=== PATIENT | female | born 1965 | race American Indian/Alaskan Native ===

== ENCOUNTER 2016-12-19 17:56 | Emergency (ER) | payer OTHER ==
[2016-12-19 19:28] VITALS: BP 137/67
[2016-12-19] MEDS ORDERED: Amoxicillin 500 MG Cap PO ONE (19:52)
[2016-12-19] MEDS ORDERED: predniSONE 20 MG Tab PO ONE (19:52)
[2016-12-19 20:04] LABS: CHLORIDE,CL 106 mmol/L (101-111); SODIUM,NA 142 mmol/L (135-145)
[2016-12-19] MEDS ORDERED: Albuterol 0.083% 2.5 MG/3 ML Neb Soln NEB ONE (20:04)
--- NOTE | 2016-12-19 20:04 | EDM.PDOC ---
ED HPI GENERAL MEDICAL PROBLEM - General Chief Complaint: General Stated Complaint: SICK Time Seen by Provider: 12/19/16 19:15 Source of Information: Reports: Patient History Limitations: Reports: No limitations - History of Present Illness INITIAL COMMENTS - FREE TEXT/NARRATIVE: cough cold symptoms for one week. Seen at [facility] told virus. 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, Breathing treatments, NSAIDS, Other medication(s) Generalized Pain Score (Numeric/FACES): 5 - Related Data Allergies Allergy/AdvReac Type Severity Reaction Status Date / Time No Known Allergies Allergy Verified 12/19/16 19:20 Home Meds: Home Meds Albuterol/Ipratropium [DuoNeb 3.0-0.5 MG/3 ML] 1 dose INH Q4H 12/19/16 [History] Benzonatate [Tessalon Perles] 100 mg PO TID 12/19/16 [History] Cough Syrup ASDIRECTED 12/19/16 [History] Ibuprofen ASDIRECTED 12/19/16 [History] Tylenol ASDIRECTED 12/19/16 [History] Past Medical History - Past Health History Medical/Surgical History: Denies Medical/Surgical History 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: , Other (see below) Other OB/BYN History: tubal ligation Social & Family History - Family History Family Medical History: Noncontributory - Tobacco Use Smoking Status *Q: Light Tobacco Smoker Years of Tobacco use: 39 Packs/Tins Daily: 0.5 Second Hand Smoke Exposure: Yes - Caffeine Use Caffeine Use: Reports: Coffee - Recreational Drug Use Recreational Drug Use: No ED ROS GENERAL - Review of Systems Review Of Systems: See Below Constitutional: Reports: fatigue HEENT: Reports: Throat pain (mild) Respiratory: Reports: Cough Cardiovascular: Reports: No symptoms GI/Abdominal: Reports: Decreased appetite (related to cough) : Reports: no symptoms Musculoskeletal: Reports: no symptoms Skin: Reports: no symptoms Neurological: Reports: No Symptoms ED EXAM, GENERAL - Physical Exam Exam: See Below Exam Limited By: No limitations General Appearance: alert, moderate distress Eye Exam: bilateral eye: PERRL Ears: normal external exam, other (TM's dull) Nose: normal inspection Throat/Mouth: Normal voice, Other (mild posterior redness) Neck: full range of motion, lymphadenopathy (L), lymphadenopathy (R) Respiratory/Chest: no respiratory distress, lungs clear, other (frequent dry hacky cough). No: rales, rhonchi, wheezing Cardiovascular: normal peripheral pulses, regular rate, rhythm GI/Abdominal: normal bowel sounds, soft Extremities: normal inspection Neurological: alert, oriented, normal cognition Psychiatric: normal affect Skin Exam: Warm, Dry, Intact, Normal color Course - Vital Signs Last Recorded V/S: Last Vital Signs Temp 98.4 F 12/19/16 19:03 Pulse 79 12/19/16 20:22 Resp 18 12/19/16 19:03 BP 137/67 12/19/16 19:03 Pulse Ox 96 12/19/16 19:03 - Orders/Labs/Meds Orders: Active Orders 24 hr Category Date Time Status RT Aerosol Therapy [RC] ASDIRECTED Care 12/19/16 20:05 Active Labs: Laboratory Tests 12/19/16 12/19/16 Range/Units 19:35 19:35 WBC 10.2 H (5.0-10.0) 10^3/uL RBC 4.45 (4.2-5.4) 10^6/uL Hgb 12.9 (12.0-16.0) g/dL Hct 39.3 (37.0-47.0) % MCV 88.3 (80-100) fL MCH 29.0 (27.0-34.0) pg MCHC 32.8 L (33.0-35.0) g/dL Plt Count 276 (150-450) 10^3/uL Neut % (Auto) 61.9 (42.2-75.2) % Lymph % (Auto) 29.8 (20.5-50.1) % [place] % (Auto) 7.1 (2-8) % Eos % (Auto) 1.1 (1.0-3.0) % Baso % (Auto) 0.1 (0.0-1.0) % Sodium 142 (135-145) mmol/L Potassium 3.5 L (3.6-5.0) mmol/L Chloride 106 (101-111) mmol/L Carbon Dioxide 25.0 (21.0-31.0) mmol/L Anion Gap 14.5 BUN 6 L (7-18) mg/dL Creatinine 0.5 L (0.6-1.3) mg/dL Est Cr Clr Drug Dosing 112.36 mL/min Estimated GFR (MDRD) > 60 Glucose 103 (74-105) mg/dL Calcium 8.8 (8.4-10.2) mg/dl Meds: Medications Discontinued Medications Generic Name Dose Route Start Last Admin Trade Name Damianq PRN Reason Stop Dose Admin Albuterol 2.5 mg 12/19/16 20:04 12/19/16 20:09 Proventil Neb Soln NEB 12/19/16 20:05 2.5 mg ONETIME ONE Administration Amoxicillin 500 mg 12/19/16 19:52 12/19/16 20:06 Amoxil PO 12/19/16 19:53 500 mg ONETIME ONE Administration Prednisone 40 mg 12/19/16 19:52 12/19/16 20:06 Prednisone PO 12/19/16 19:53 40 mg ONETIME ONE Administration - Radiology Interpretation Free Text/Narrative:: CXR negative Departure - Departure Time of Disposition: 19:56 Disposition: Home, Self-Care 01 Condition: fair Clinical Impression: Cough, Strep pharyngitis URI (upper respiratory infection) Qualifiers: URI type: unspecified URI Qualified Code(s): J06.9 - Acute upper respiratory infection, unspecified Instructions: Cough, Adult, [id number] Referrals: Stella Ortega RESIDENTIAL COLLECTIONS [Primary Care Provider] - Forms: ED Department Discharge Additional Instructions: continue nebulizer treatments every 4 hours as needed prednisone 20mg one daily x 5 days amoxicillin 500mg one three times daily for one week clinic Monday if symptoms not improving, cough should be improving but may continue up to 2 weeks increase fluids avoid tobacco - My Orders Last 24 Hours: My Active Orders 12/19/16 20:05 RT Aerosol Therapy [RC] ASDIRECTED - Assessment/Plan Last 24 Hours: My Active Orders 12/19/16 20:05 RT Aerosol Therapy [RC] ASDIRECTED
== END 2016-12-19 20:25 | disposition home or self-care (01) ==
LOC: DL.ED 17:56
DX: J06.9 Acute upper respiratory infection, unspecified (principal); F17.210 Nicotine dependence, cigarettes, uncomplicated; Z98.51 Tubal ligation status
CPT/HCPCS: 36415; 71020; 80048; 85025; 87430; 94640; 99284; A9270; J7620

== ENCOUNTER 2018-07-01 10:54 | Emergency (ER) | payer OTHER ==
[2018-07-01 11:07] VITALS: BP 157/79
--- NOTE | 2018-07-01 11:32 | EDM.PDOC ---
ED HPI GENERAL MEDICAL PROBLEM - General Chief Complaint: Back Pain or Injury Stated Complaint: LOWER BACK/ABD PAINS [id number] Time Seen by Provider: 07/01/18 11:27 Source of Information: Reports: Patient, RN, RN Notes Reviewed History Limitations: Reports: No Limitations - History of Present Illness INITIAL COMMENTS - FREE TEXT/NARRATIVE: Patient presents to ER with complaint of low back pain and lower pelvic pain since last night/yesterday. She has had frequency and urgency and rates the pain 6/10. She has had no burning with urination, fever, chills, nausea, vomiting or diarrhea. Onset Date: 06/30/18 Duration: Getting Worse Quality: Reports: Ache Severity: Moderate Improves with: Reports: None Worsens with: Reports: None Associated Symptoms: Reports: No Other Symptoms Lower Back Pain Score (Numeric/FACES): 6 - Related Data Allergies Allergy/AdvReac Type Severity Reaction Status Date / Time No Known Allergies Allergy Verified 07/01/18 11:03 Home Meds: Home Meds Ibuprofen ASDIRECTED 12/19/16 [History] Tylenol ASDIRECTED 12/19/16 [History] Past Medical History - Past Health History Medical/Surgical History: Denies Medical/Surgical History HEENT History: Reports: Impaired Vision Cardiovascular History: Reports: None Respiratory History: Reports: None Gastrointestinal History: Reports: None Genitourinary History: Reports: Other (See Below) Other Genitourinary History: bladder sling 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, , Other (See Below) Other ADAPTED PHYSICAL EDUCATION SPECIALIST History: tubal ligation Musculoskeletal History: Reports: None Neurological History: Reports: None Psychiatric History: Reports: None Endocrine/Metabolic History: Reports: None Hematologic History: Reports: None Immunologic History: Reports: None Oncologic (Cancer) History: Reports: None Dermatologic History: Reports: None - Infectious Disease History Infectious Disease History: Reports: None - Past Surgical History Head Surgeries/Procedures: Reports: None Social & Family History - Family History Family Medical History: Noncontributory - Tobacco Use Smoking Status *Q: Current Every Day Smoker Years of Tobacco use: 40 Packs/Tins Daily: 1 - Caffeine Use Caffeine Use: Reports: Coffee - Recreational Drug Use Recreational Drug Use: No ED ROS GENERAL - Review of Systems Review Of Systems: ROS reveals no pertinent complaints other than HPI. ED EXAM, RENAL/ - Physical Exam Exam: See Below Exam Limited By: No Limitations General Appearance: Alert, WD/WN, No Apparent Distress Eye Exam: Bilateral Eye: EOMI, Normal Inspection, PERRL Ears: Normal External Exam, Normal Canal, Hearing Grossly Normal, Normal TMs Nose: Normal Inspection, Normal Mucosa, No Blood Throat/Mouth: Normal Inspection, Normal Lips, Normal Teeth, Normal Gums, Normal Oropharynx, Normal Voice, No Airway Compromise Head: Atraumatic, Normocephalic Neck: Normal Inspection, Supple, Non-Tender, Full Range of Motion Respiratory/Chest: No Respiratory Distress, Lungs Clear, Normal Breath Sounds, No Accessory Muscle Use, Chest Non-Tender Cardiovascular: Normal Peripheral Pulses, Regular Rate, Rhythm, No Edema, No Gallop, No JVD, No Murmur, No Rub GI/Abdominal: Other (tender right lower quadrant) (Female) Exam: Deferred Rectal (Female) Exam: Deferred Back Exam: Normal Inspection, Full Range of Motion, NT Extremities: Normal Inspection, Normal Range of Motion, Non-Tender, Normal Capillary Refill, No Pedal Edema Neurological: Alert, Oriented, CN II-XII Intact, Normal Cognition, Normal Gait, Normal Reflexes, No Motor/Sensory Deficits Psychiatric: Normal Affect, Normal Mood Skin Exam: Warm, Dry, Intact, Normal Color, No Rash Lymphatic: No Adenopathy Course - Vital Signs Last Recorded V/S: Last Vital Signs Temp 97.2 F 07/01/18 11:04 Pulse 77 07/01/18 11:04 Resp 18 07/01/18 11:04 BP 157/79 H 07/01/18 11:04 Pulse Ox 100 07/01/18 11:04 - Orders/Labs/Meds Labs: Laboratory Tests 07/01/18 Range/Units 10:59 Urine Color Yellow (YELLOW) Urine Appearance Cloudy (CLEAR) Urine pH 7.0 (5.0-9.0) Ur Specific Leiter 1.020 (1.005-1.030) Urine Protein Negative (NEGATIVE) Urine Glucose (UA) Negative (NEGATIVE) Urine Ketones Negative (NEGATIVE) Urine Occult Blood Negative (NEGATIVE) Urine Nitrite Positive H (NEGATIVE) Urine Bilirubin Negative (NEGATIVE) Urine Urobilinogen 0.2 (0.2-1.0) mg/dL Ur Leukocyte Esterase Negative (NEGATIVE) Urine RBC 0-5 /HPF Urine WBC 0-5 (0-5/HPF) /HPF Ur Epithelial Cells Few /HPF Urine Bacteria Many H (0-FEW/HPF) /HPF Urine Mucus Moderate H /LPF Departure - Departure Time of Disposition: 11:31 Disposition: Home, Self-Care 01 Condition: Fair Clinical Impression: UTI (urinary tract infection) Qualifiers: Urinary tract infection type: site unspecified Hematuria presence: without hematuria Qualified Code(s): N39.0 - Urinary tract infection, site not specified - Discharge Information *PRESCRIPTION DRUG MONITORING PROGRAM REVIEWED*: No *COPY OF PRESCRIPTION DRUG MONITORING REPORT IN PATIENT DEBORA: No Instructions: Urinary Tract Infection, Adult, [id number], You've Been Prescribed Antibiotics in the Hospital for Infection-CDC (01/17) Referrals: Stella Ortega PUBLIC SERVICES LIBRARIAN [Primary Care Provider] - Forms: ED Department Discharge Additional Instructions: RX: Macrobid Drink plenty of water Tylenol and/or ibuprofen as directed for pain/fever Follow up with your primary care facility
== END 2018-07-01 11:35 | disposition home or self-care (01) ==
LOC: DL.ED 10:54
DX: N39.0 Urinary tract infection, site not specified (principal); F17.210 Nicotine dependence, cigarettes, uncomplicated
CPT/HCPCS: 81001; 87086; 87088; 87186; 99284

== ENCOUNTER 2018-12-18 18:14 | Emergency (ER) | payer BC, OTHER ==
[2018-12-18] MEDS ORDERED: Ondansetron 4 MG Tab.DIS PO ONE (18:15)
[2018-12-18 18:20] VITALS: BP 158/85
[2018-12-18] MEDS ORDERED: Ondansetron 4 MG/2 ML SDV IV ONE (19:05)
[2018-12-18] MEDS ORDERED: Sodium Chloride 0.9% 10 ML Syringe FLUSH PRN (19:05)
[2018-12-18] MEDS ORDERED: Sodium Chloride 0.9% 1,000 ML IV ONE (19:05)
[2018-12-18] MEDS ORDERED: Loperamide 2 MG Cap PO ONE ×2 (19:05→19:47)
--- NOTE | 2018-12-18 19:26 | EDM.PDOC ---
ED HPI GENERAL MEDICAL PROBLEM - General Chief Complaint: ENT Problem Stated Complaint: SOMETHING IN THROAT [id number] Time Seen by Provider: 12/18/18 19:10 Source of Information: Reports: Patient History Limitations: Reports: No Limitations - History of Present Illness INITIAL COMMENTS - FREE TEXT/NARRATIVE: Pt to ER with c/o feeling of tooth caught in her throat. She states 2 weeks ago she was eating a hamburger when one of her loose teeth (upper left molar) fell out and she feels she swallowed it. She states she feels her throat has been irritated in the same spot since that time. Pt also c/o N/V/D beginning this evening. She denies CP, SOB, fever, chills. She states her and grandchild have had gastroenteritis, nausea and diarrhea in the past days. Patient denies any pain. Onset: Gradual - Related Data Allergies Allergy/AdvReac Type Severity Reaction Status Date / Time No Known Allergies Allergy Verified 12/18/18 18:18 Home Meds: Home Meds Ibuprofen 800 mg PO Q6H PRN 12/19/16 [History] Tylenol 650 mg PO Q4H PRN 12/19/16 [History] Past Medical History - Past Health History Medical/Surgical History: Denies Medical/Surgical History HEENT History: Reports: Impaired Vision Cardiovascular History: Reports: None Respiratory History: Reports: None Gastrointestinal History: Reports: None Genitourinary History: Reports: Other (See Below) Other Genitourinary History: bladder sling 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, , Other (See Below) Other SOFTWARE ENGINEER WEB 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 History: tubal ligation Musculoskeletal History: Reports: None Neurological History: Reports: None Psychiatric History: Reports: None Endocrine/Metabolic History: Reports: None Hematologic History: Reports: None Immunologic History: Reports: None Oncologic (Cancer) History: Reports: None Dermatologic History: Reports: None - Infectious Disease History Infectious Disease History: Reports: None - Past Surgical History Head Surgeries/Procedures: Reports: None Female Surgical History: Reports: Section Social & Family History - Family History Family Medical History: Noncontributory - Tobacco Use Smoking Status *Q: Current Every Day Smoker Years of Tobacco use: 40 Packs/Tins Daily: 0.5 - Caffeine Use Caffeine Use: Reports: Coffee, Soda - Recreational Drug Use Recreational Drug Use: No ED ROS GENERAL - Review of Systems Review Of Systems: ROS reveals no pertinent complaints other than HPI. ED EXAM, GI/ABD - Physical Exam Exam: See Below Exam Limited By: No Limitations General Appearance: Alert, WD/WN, Mild Distress Eyes: Bilateral: Normal Appearance, EOMI Ears: Normal External Exam, Hearing Grossly Normal Nose: Normal Inspection Throat/Mouth: Normal Inspection, Normal Lips, Normal Teeth, Normal Gums, Normal Oropharynx, Normal Voice, No Airway Compromise, Other (missing upper left first molar) Head: Atraumatic, Normocephalic Neck: Normal Inspection, Supple, Non-Tender, Full Range of Motion Respiratory/Chest: No Respiratory Distress, Lungs Clear, Normal Breath Sounds, No Accessory Muscle Use, Chest Non-Tender Cardiovascular: Normal Peripheral Pulses, Regular Rate, Rhythm, No Edema, No Gallop, No JVD, No Murmur, No Rub GI/Abdominal Exam: Normal Bowel Sounds, Soft, Tender, Other (cramping with diarrhea) (Female) Exam: Deferred Rectal (Female) Exam: Deferred Back Exam: Normal Inspection, Full Range of Motion Extremities: Normal Inspection, Normal Range of Motion, Non-Tender, Normal Capillary Refill, No Pedal Edema Neurological: Alert, Oriented, CN II-XII Intact, Normal Cognition, Normal Gait, Normal Reflexes, No Motor/Sensory Deficits Psychiatric: Anxious Skin Exam: Warm, Dry, Intact, Normal Color, No Rash Lymphatic: No Adenopathy Course - Vital Signs Last Recorded V/S: Last Vital Signs Temp 97.7 F 12/18/18 18:18 Pulse 97 12/18/18 18:18 Resp 18 12/18/18 18:18 BP 158/85 H 12/18/18 18:18 Pulse Ox 100 12/18/18 18:18 - Orders/Labs/Meds Orders: Active Orders 24 hr Category Date Time Status Peripheral IV Care [RC] . DIRECTED Care 12/18/18 19:05 Active Neck Soft Tissue [CR] Urgent Exams 12/18/18 19:41 Taken UA RFX ARTEM AND CULT IF INDIC [URIN] Stat Lab 12/18/18 20:24 Received Sodium Chloride 0.9% [Saline Flush] Med 12/18/18 19:05 Active 10 ml FLUSH ASDIRECTED PRN Peripheral IV Insertion Adult [OM.PC] Stat Oth 12/18/18 19:04 Ordered Medication Orders Sodium Chloride (Saline Flush) 10 ml FLUSH ASDIRECTED PRN PRN Reason: Keep Vein Open Last Admin: 12/18/18 19:13 Dose: 10 ml Labs: Laboratory Tests 12/18/18 12/18/18 Range/Units 19:07 19:07 WBC 15.8 H (5.0-10.0) 10^3/uL RBC 5.73 H (4.2-5.4) 10^6/uL Hgb 16.4 H D (12.0-16.0) g/dL Hct 49.4 H (37.0-47.0) % MCV 86.2 (80-100) fL MCH 28.6 (27.0-34.0) pg MCHC 33.2 (33.0-35.0) g/dL Plt Count 287 (150-450) 10^3/uL Neut % (Auto) 69.1 (42.2-75.2) % Lymph % (Auto) 22.7 (20.5-50.1) % [place] % (Auto) 6.6 (2-8) % Eos % (Auto) 1.4 (1.0-3.0) % Baso % (Auto) 0.2 (0.0-1.0) % Sodium 136 (135-145) mmol/L Potassium 3.5 L (3.6-5.0) mmol/L Chloride 103 (101-111) mmol/L Carbon Dioxide 20.0 L (21.0-31.0) mmol/L Anion Gap 16.5 BUN 12 (7-18) mg/dL Creatinine 0.6 (0.6-1.3) mg/dL Est Cr Clr Drug Dosing 91.48 mL/min Estimated GFR (MDRD) > 60 BUN/Creatinine Ratio 20.00 Glucose 121 H (74-105) mg/dL Calcium 9.2 (8.4-10.2) mg/dl Total Bilirubin 0.8 (0.2-1.0) mg/dL AST 25 (10-42) IU/L ALT 26 (10-60) IU/L Alkaline Phosphatase 122 H (42-121) IU/L Total Protein 9.1 H (6.7-8.2) g/dl Albumin 4.6 (3.2-5.5) g/dl Globulin 4.5 Albumin/Globulin Ratio 1.02 Meds: Medications Generic Name Dose Route Start Last Admin Trade Name Ever PRN Reason Stop Dose Admin Sodium Chloride 10 ml 12/18/18 19:05 12/18/18 19:13 Saline Flush FLUSH 10 ml ASDIRECTED PRN Administration Keep Vein Open Discontinued Medications Generic Name Dose Route Start Last Admin Trade Name Ever PRN Reason Stop Dose Admin Sodium Chloride 1,000 mls @ 999 mls/hr 12/18/18 19:05 12/18/18 19:12 Normal Saline IV 12/18/18 20:05 999 mls/hr .BOLUS ONE Administration Loperamide HCl 2 mg 12/18/18 19:05 12/18/18 19:13 Imodium PO 12/18/18 19:06 2 mg ONETIME ONE Administration Loperamide HCl 4 mg 12/18/18 19:47 12/18/18 19:53 Imodium PO 12/18/18 19:48 4 mg ONETIME ONE Administration Ondansetron HCl 4 mg 12/18/18 19:05 12/18/18 19:12 Zofran IV 12/18/18 19:06 4 mg ONETIME ONE Administration - Radiology Interpretation Free Text/Narrative:: Neck soft tissue: FINDINGS: Airway: Normal. No abnormal narrowing. No evidence of radiopaque foreign body. Soft tissues: Normal. Normal epiglottis. Bones/joints: Normal for age. IMPRESSION: No evidence of radiopaque foreign body. Thank you for allowing us to participate in the care of your patient. Dictated and Authenticated by: Enrrique Perry DO 12/18/2018 8:18 PM Central Time ([place] & [place]) See rad report Departure - Departure Time of Disposition: 20:37 Disposition: Home, Self-Care 01 Condition: Fair Clinical Impression: Gastroenteritis - Discharge Information *PRESCRIPTION DRUG MONITORING PROGRAM REVIEWED*: No *COPY OF PRESCRIPTION DRUG MONITORING REPORT IN PATIENT DEBORA: No Instructions: Food Choices to Help Relieve Diarrhea, Adult, Viral Gastroenteritis, Adult, [id number] Forms: ED Department Discharge Additional Instructions: Drink sips of water frequently when not nauseated Rest Follow up with your primary care facility for referral to GI for esophageal problems. - My Orders Last 24 Hours: My Active Orders 12/18/18 19:04 Peripheral IV Insertion Adult [OM.PC] Stat 12/18/18 19:05 Peripheral IV Care [RC] . DIRECTED Sodium Chloride 0.9% [Saline Flush] 10 ml FLUSH ASDIRECTED PRN 12/18/18 19:41 Neck Soft Tissue [CR] Urgent 12/18/18 20:24 UA RFX ARTEM AND CULT IF INDIC [URIN] Stat - Assessment/Plan Last 24 Hours: My Active Orders 12/18/18 19:04 Peripheral IV Insertion Adult [OM.PC] Stat 12/18/18 19:05 Peripheral IV Care [RC] . DIRECTED Sodium Chloride 0.9% [Saline Flush] 10 ml FLUSH ASDIRECTED PRN 12/18/18 19:41 Neck Soft Tissue [CR] Urgent 12/18/18 20:24 UA RFX ARTEM AND CULT IF INDIC [URIN] Stat
[2018-12-18 19:34] LABS: ANION GAP 16.5; CHLORIDE,CL 103 mmol/L (101-111); SODIUM,NA 136 mmol/L (135-145)
[2018-12-18] MEDS ORDERED: Ondansetron 4 MG Tab.DIS ONE (20:39)
== END 2018-12-18 20:46 | disposition home or self-care (01) ==
LOC: DL.ED 18:14
DX: K52.9 Noninfective gastroenteritis and colitis, unspecified (principal); F17.210 Nicotine dependence, cigarettes, uncomplicated
CPT/HCPCS: 36415; 70360; 80053; 81001; 85025; 96361; 96374; 99284; A9270; J2405; J7030

== ENCOUNTER 2021-05-17 06:27 | Day surgery (SDC) | payer BC, MEDICAID, OTHER ==
[~2021-05-17 06:27] MED LIST: Midazolam 1 MG/ML 2 ML SDV ONE; Sodium Chloride 0.9% 10 ML Syringe FLUSH PRN; fentaNYL 100 MCG/2 ML SDV ONE
[2021-05-17] MEDS ORDERED: fentaNYL 100 MCG/2 ML SDV IV ONE (06:28)
[2021-05-17] MEDS ORDERED: Midazolam 1 MG/ML 2 ML SDV IV ONE (06:28)
[2021-05-17] MEDS: Dextrose 5%-0.45% NaCl 1,000 ML IV SCH (06:58)
[2021-05-17] MEDS: fentaNYL 100 MCG/2 ML SDV IV ONE ×6 (07:35→07:49)
[2021-05-17] MEDS: Midazolam 1 MG/ML 2 ML SDV IV ONE ×6 (07:36→07:42)
--- NOTE | 2021-05-17 09:13 | OR ---
DATE: 05/17/2021 PROCEDURES: Total colonoscopy, NBI, cold snare polypectomy, and pinch biopsy. INSTRUMENT USED: PCF-H190DL Olympus video colonoscope. PREMEDICATIONS: Fentanyl 200 mcg intravenous, Versed 4 mg intravenous, nasal O2 cannula. The procedure was done under pulse oximetry, BP recording, and room service associate. INDICATION: The patient with Hemoccult positive stools. Colonoscopic examination is done for detection of any polypoid lesions and removal, endoscopic hemostasis therapy if needed. DESCRIPTION OF PROCEDURE: Initial rectal exam was unremarkable. Rigid anoscopy showed small internal hemorrhoids without bleeding from them. The colonoscope was passed up to the ileocecal area. Photographs were taken of the cecum showing more than 1 cm sized benign-appearing polyp at the ileocecal junction. NBI views were obtained. One superficial biopsy was taken. Photographs were obtained. No stricture. No vascular ectasia. No large isolated ulcerations seen. No evidence of diffuse inflammatory bowel disease in the form of friability, contact bleeding, or ulcerations. No bleeding was noted from any of the visualized areas at the commencement of the examination. The bowel preparation was found to be adequate, Emerson scale 2 in right and left colon, 3 in transverse colon, total score 7. Probing the proximal sides of folds and flexures using adequate distention and clearing up the stool material, withdrawal of the scope was made. In the distal descending colon, diminutive polyp was noted, NBI views were obtained, photographs were taken, cold snare polypectomy was done, the tissue was retrieved and sent for histopathology. No bleeding was noted from any of the visualized areas at the completion of examination. IMPRESSION: Multiple colonic polyps. The patient tolerated the procedure well. [facility] /[id number]
[2021-05-17 10:07] VITALS: BP 99/54; PULSE 67
--- NOTE | 2021-05-17 10:13 | LETTER ---
05/17/2021 RE: STEPHIE MEJIA : 1965 Stella Ortega, WAREHOUSE SHIPPING CLERK [address] [facility] [address] Dear Ms. Solerashlydiony: Ms. Stephie Mejia had colonoscopic examination done this morning and she tolerated the procedure well. I herewith send a copy of the endoscopy note and photographs for your review. Thank you. Sincerely, [facility] /[id number]
== END 2021-05-17 10:15 | disposition home or self-care (01) ==
LOC: DL.ENDO 06:27
PROVIDERS: ATTEND Internal Medicine Gastroenterology
DX: D12.0 Benign neoplasm of cecum (principal); D12.4 Benign neoplasm of descending colon; I10 Essential (primary) hypertension; J45.909 Unspecified asthma, uncomplicated; E11.9 Type 2 diabetes mellitus without complications; E66.09 Other obesity due to excess calories; F17.210 Nicotine dependence, cigarettes, uncomplicated; Z68.31 Body mass index [BMI] 31.0-31.9, adult
CPT/HCPCS: J2250; J3010; J7042

== ENCOUNTER 2024-03-26 06:25 | Day surgery (SDC) | payer BC, OTHER ==
[2024-03-26] MEDS ORDERED: Midazolam 1 MG/ML 2 ML SDV IV ONE (06:26)
[2024-03-26] MEDS ORDERED: fentaNYL 100 MCG/2 ML SDV IV ONE (06:26)
[2024-03-26] MEDS ORDERED: fentaNYL 100 MCG/2 ML SDV ONE (06:46)
[2024-03-26] MEDS ORDERED: Midazolam 1 MG/ML 2 ML SDV ONE (06:46)
[2024-03-26] MEDS: Dextrose 5%-0.45% NaCl 1,000 ML IV SCH (06:55)
[2024-03-26] MEDS: fentaNYL 100 MCG/2 ML SDV IV ONE ×6 (07:23→07:40)
[2024-03-26] MEDS: Midazolam 1 MG/ML 2 ML SDV IV ONE ×9 (07:24→07:45)
[2024-03-26 08:10] VITALS: BP 118/96; PULSE 80
== END 2024-03-26 10:00 | disposition home or self-care (01) ==
LOC: DL.ENDO 06:25
PROVIDERS: ATTEND Internal Medicine Gastroenterology
DX: Z12.11 Encounter for screening for malignant neoplasm of colon (principal); D12.5 Benign neoplasm of sigmoid colon; J44.9 Chronic obstructive pulmonary disease, unspecified; K66.0 Peritoneal adhesions (postprocedural) (postinfection); Z86.010 Personal history of colon polyps
CPT/HCPCS: 45385; J2250; J3010; J7042

== ENCOUNTER 2024-11-05 11:00 | Emergency (ER) | payer BC, OTHER ==
[2024-11-05 11:28] LABS: BASOPHILS PERCENT AUTO 0.4 % (0.0-1.0); HEMATOCRIT 43.6 % (37.0-47.0); HEMOGLOBIN 14.1 g/dL (12.0-16.0); LYMPHOCYTES PERCENT AUTO 30.7 % (20.5-50.1); MEAN CORPUSCULAR HEMOGLOBIN 29.3 pg (27.0-34.0); MEAN CORPUSCULAR HGB CONC 32.3 g/dL (33.0-35.0); MEAN CORPUSCULAR VOLUME 90.5 fL (80-100); MONOCYTES PERCENT AUTO 8.8 % (2-8); NEUTROPHILS PERCENT AUTO 55.1 % (42.2-75.2); PLATELET COUNT,PLT 219 10^3/uL (150-450); RED BLOOD CELL COUNT 4.82 10^6/uL (4.2-5.4); WHITE BLOOD CELL COUNT,WBC 7.1 10^3/uL (5.0-10.0)
[2024-11-05] MEDS: Acetaminophen 325 MG Tab PO ONE (11:39)
[2024-11-05] MEDS: Albuterol/Ipratropium 3.0-0.5 MG/3 ML Neb Soln NEB ONE (11:39)
[2024-11-05] MEDS: methylPREDNISolone Sodium Succinate 125 MG/2 ML SDV IVPUSH ONE (11:40)
[2024-11-05 11:58] LABS: MAGNESIUM 1.9 mg/dL (1.8-2.4)
[2024-11-05 12:24] VITALS: BP 134/72; PULSE 79
[2024-11-05 13:45] LABS: A/G RATIO 0.9; ALBUMIN 3.5 g/dL (3.4-5.0); ANION GAP 12.1 mEq/L (7-13); BILIRUBIN TOTAL 0.4 mg/dL (0.2-1.0); BUN/CREATININE RATIO 10.6 (No establ ref range); CALCIUM 8.8 mg/dL (8.5-10.1); CREATININE 0.66 mg/dL (0.55-1.02); EST CRCL DRUG DOSING (CG) 78.27 mL/min; POTASSIUM,K 4.1 mmol/L (3.5-5.1); PROTEIN TOTAL,TP 7.2 g/dL (6.4-8.2)
[2024-11-05] MEDS: Nicotine 21 MG/24 Hr Patch TRDERM ONE (13:59)
== END 2024-11-05 14:05 | disposition home or self-care (01) ==
LOC: DL.ED 11:00
DX: J45.901 Unspecified asthma with (acute) exacerbation (principal); J20.9 Acute bronchitis, unspecified; I10 Essential (primary) hypertension; K21.9 Gastro-esophageal reflux disease without esophagitis; E11.9 Type 2 diabetes mellitus without complications; E66.9 Obesity, unspecified; Z86.16 Personal history of COVID-19; Z79.899 Other long term (current) drug therapy; Z68.32 Body mass index [BMI] 32.0-32.9, adult
CPT/HCPCS: 36415; 71045; 80053; 82947; 83690; 83735; 84484; 85025; 85379; 93005; 96374; 99285; A9270; J2919; J7620-GY